=== PATIENT | male | born 1990 | race Two or more races ===

== ENCOUNTER 2016-11-22 20:23 | Emergency (ER) | payer MEDICAID | END 2016-11-22 22:54 | disposition home or self-care (01) | LOC: D.ER 20:23 | PROVIDERS: Family Medicine | DX: J02.9 Acute pharyngitis, unspecified (principal); J06.9 Acute upper respiratory infection, unspecified; J45.909 Unspecified asthma, uncomplicated; F17.200 Nicotine dependence, unspecified, uncomplicated ==